=== PATIENT | female | born 1940 | race African-American/Black ===

== ENCOUNTER 2016-04-26 17:51 | Emergency (ER) | payer MEDICARE ==
[~2016-04-26] VITALS: Ht 170.2 cm; Wt 56.2 kg
[~2016-04-26 17:51] MED LIST: ALDACTONE 50MG50 MG PO; AMITRIPTYLINE50 MG PO; AMLODIPINE10 MG PO; BACLOFEN 10MG T10 MG; BACLOFEN 10MG T10 MG PO; CIPRO 250MG TA250 MG PO; DULCOLAX 1010 MG/SUP PR; FERROUS SULFAT325 M2 PO; FUROSEMIDE 40MG40 M1 PO; HYDROCHLOROTHIA25 M1; HYDROCHLOROTHIA25 M1 PO; HYDROCODONE W/1 TAB PO; K-DUR 20MEQ TA20 MEQ PO; KLOR-CON M2020 ME1 PO; LASIX 40MG. TAB40 MG PO; LISINOPRIL20 MG PO; MAGNESIUM CITRA1 BOT PO; METAMUCIL PO; METFORMIN 500M500 M1 PO; METFORMIN HCL1000 MG; MIRALAX17 GM/PACK PO; NORVASC 10MG. T10 MG; POTASSIUM CHLO20 ME2 PO; PRILOSEC20 M1 PO; Prilosec20 MG PO; TIZANIDINE2 MG PO; TRAMADOL 50MG T50 M1 PO; VICODIN 5/500 T1 TAB PO
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
--- NOTE | 2016-04-26 19:10 | RADIOLOGY REPORT PS360 ---
[id number] ([id number] VIEWS CLINICAL INDICATION: FALL ORDERING PHYSICIAN: PAT MOSES APRN PATIENT AGE: 75 years COMPARISON: None FINDINGS: No fracture or dislocation. There are minimal osteoarthritic changes of the PIP joint. IMPRESSION: No acute finding
[2016-04-26 19:18] VITALS: BP 166/81
== END 2016-04-26 19:18 | disposition home or self-care (01) ==
LOC: UTC 17:51 → ER 17:51 → UTC 18:02
PROC: 2W3FX1Z Immobilization of Left Hand using Splint (ICD-10-PCS; principal; 2016-04-26)
DX: S62.307A Unspecified fracture of fifth metacarpal bone, left hand, initial encounter for closed fracture (principal); W01.0XXA Fall on same level from slipping, tripping and stumbling without subsequent striking against object, initial encounter; Y92.013 Bedroom of single-family (private) house as the place of occurrence of the external cause; I10 Essential (primary) hypertension